=== PATIENT | female | born 1960 | race Two or more races ===

== ENCOUNTER 2024-04-18 21:18 | Emergency (ER) | payer MEDICAID, OTHER ==
[~2024-04-18] VITALS: Ht 162.6 cm; Wt 81.6 kg
[2024-04-18 21:25] VITALS: TEMP 98.1
[2024-04-18 22:13] LABS: BASOPHILS # (AUTO) 0.1 K/uL (0.0-0.2); BASOPHILS % (AUTO) 1.7 % (0.0-2.0); EOSINOPHILS # (AUTO) 0.3 K/uL (0.0-0.7); HEMATOCRIT 25 % (33-45); HEMOGLOBIN 8.2 g/dL (11.5-14.8); LYMPHOCYTES # (AUTO) 0.9 K/uL (0.8-4.8); LYMPHOCYTES % (AUTO) 21.3 % (20.0-44.0); MEAN CORPUSCULAR HEMOGLOBIN 31 PG (26.0-33.0); MEAN CORPUSCULAR HGB CONC 33 g/dl (31.0-36.0); MEAN CORPUSCULAR VOLUME 95 fL (82-100); MONOCYTES # (AUTO) 0.4 K/uL (0.1-1.30); MONOCYTES % (AUTO) 8.4 % (2.0-12.0); NEUTROPHILS # (AUTO) 2.7 K/uL (1.8-8.9); NEUTROPHILS % (AUTO) 62.6 % (43.0-81.0); PLATELET COUNT (AUTO) 200 K/uL (150-450); RED BLOOD CELL COUNT(AUTO) 2.63 MIL/uL (4.0-5.2); RED CELL DISTRIBUTION WIDTH 14.8 % (11.5-15.0); WHITE BLOOD COUNT (AUTO) 4.4 K/uL (4.3-11.0)
[2024-04-18 22:19] LABS: CALCIUM, SERUM 6.7 mg/dL (8.5-10.1); CARBON DIOXIDE 15 mmol/L (21-32); CHLORIDE 113 mmol/L (98-107); CREATININE 4.9 mg/dL (0.6-1.3); GLUCOSE 126 mg/dL (74-106); POTASSIUM 4.8 mmol/L (3.5-5.1); SODIUM SERUM 141 mmol/L (136-145); UREA NITROGEN, BLOOD 54 mg/dL (7-18)
[2024-04-18] MEDS ORDERED: hydrALAZINE HCL 50 MG TABLET ONE (22:28)
[2024-04-18] MEDS: FUROSEMIDE 40 MG/4 ML VIAL IV ONE (22:37)
[2024-04-18] MEDS: hydrALAZINE HCL 25 MG TABLET PO ONE (22:38)
[2024-04-18 23:02] LABS: ALBUMIN 2.2 g/dL (3.4-5.0); BILIRUBIN,DIRECT 0.1 mg/dL (0.0-0.2); BILIRUBIN,TOTAL 0.3 mg/dL (0.2-1.0); TOTAL PROTEIN, SERUM 6.7 g/dL (6.4-8.2)
[2024-04-18 23:08] LABS: ADD URINE CULTURE YES; APPEARANCE,URINE TURBID (CLEAR); BACTERIA,URINE Moderate /HPF (None Seen); BILIRUBIN,URINE NEGATIVE (NEGATIVE); BLOOD, URINE 2+ Ery/uL (NEGATIVE); COLOR,URINE YELLOW (YELLOW); KETONES,URINE TRACE mg/dL (NEGATIVE); LEUKOCYTE ESTERASE ,URINE 2+ (NEGATIVE); NITRITE, URINE NEGATIVE (NEGATIVE); PROTEIN,URINE 3+ mg/dl (NEGATIVE); SQUAMOUS EPITHELIAL CELL,UR Rare /HPF (None Seen); UGLUCOSE 1+ mg/dL (NEGATIVE); UROBILINOGEN,URINE 0.2 EU/dL (0.2); WBC,URINE 51-80 /HPF (0-3)
[2024-04-19] MEDS: CEFTRIAXONE 1GM BAG (ER ONLY) 1 GM/50 ML PIGGYBACK IV ONE (00:04)
[2024-04-19 02:22] VITALS: BP 174/71; O2SAT 95
== END 2024-04-19 02:23 | disposition short-term general hospital (02) ==
LOC: ER 21:18
DX: I50.9 Heart failure, unspecified (principal); Z20.822 Contact with and (suspected) exposure to COVID-19
CPT/HCPCS: 99291; 96375; 87426; 93005; 71045; 85025; 80048; 87086; 83690; 80076; 81001; 36415; 84484; 96365; J1940; J0696

== ENCOUNTER 2025-01-31 19:11 | Emergency (ER) | payer OTHER, MEDICAID ==
[~2025-01-31] VITALS: Ht 162.6 cm; Wt 90.7 kg
[2025-01-31] MEDS ORDERED: ONDANSETRON 4 MG TAB.RAPDIS ONE (20:27)
[2025-01-31 20:28] LABS: BASOPHILS % (AUTO) 1.3 % (0.0-2.0); EOSINOPHILS # (AUTO) 0.2 K/uL (0.0-0.7); EOSINOPHILS % (AUTO) 6.8 % (0.0-6.0); HEMATOCRIT 29 % (33-45); HEMOGLOBIN 9.8 g/dL (11.5-14.8); LYMPHOCYTES # (AUTO) 0.8 K/uL (0.8-4.8); LYMPHOCYTES % (AUTO) 31.8 % (20.0-44.0); MEAN CORPUSCULAR HEMOGLOBIN 32 PG (26.0-33.0); MEAN CORPUSCULAR HGB CONC 34 g/dl (31.0-36.0); MEAN CORPUSCULAR VOLUME 93 fL (82-100); MONOCYTES # (AUTO) 0.2 K/uL (0.1-1.30); MONOCYTES % (AUTO) 9.5 % (2.0-12.0); NEUTROPHILS # (AUTO) 1.3 K/uL (1.8-8.9); NEUTROPHILS % (AUTO) 50.6 % (43.0-81.0); PLATELET COUNT (AUTO) 163 K/uL (150-450); RED BLOOD CELL COUNT(AUTO) 3.11 MIL/uL (4.0-5.2); RED CELL DISTRIBUTION WIDTH 14.4 % (11.5-15.0); WHITE BLOOD COUNT (AUTO) 2.6 K/uL (4.3-11.0)
[2025-01-31] MEDS: ONDANSETRON 4 MG TAB.RAPDIS PO ONE (20:28)
[2025-01-31 20:40] LABS: CALCIUM, SERUM 7.4 mg/dL (8.5-10.1); CARBON DIOXIDE 27 mmol/L (21-32); CHLORIDE 103 mmol/L (98-107); CREATININE 6.6 mg/dL (0.6-1.3); GLUCOSE 132 mg/dL (74-106); POTASSIUM 3.3 mmol/L (3.5-5.1); SODIUM SERUM 138 mmol/L (136-145); UREA NITROGEN, BLOOD 32 mg/dL (7-18)
[2025-01-31 20:42] LABS: MAGNESIUM 2.3 mg/dL (1.8-2.4); PHOSPHORUS 5.1 mg/dL (2.5-4.9)
[2025-01-31 20:53] LABS: ALANINE AMINOTRANSFERASE 126 U/L (12-78); ALBUMIN 2.6 g/dL (3.4-5.0); ALKALINE PHOSPHATASE 148 U/L (46-116); ASPARTATE AMINOTRANSFERASE 142 U/L (15-37); BILIRUBIN,DIRECT 0.1 mg/dL (0.0-0.2); BILIRUBIN,TOTAL 0.3 mg/dL (0.2-1.0); NT-PRO BNP > 25000 pg/mL (0-125); TOTAL PROTEIN, SERUM 6.7 g/dL (6.4-8.2)
[2025-01-31] MEDS ORDERED: ONDA4TAB5 PO (22:11)
[2025-01-31] MEDS ORDERED: FUROSEMIDE 40 MG/4 ML VIAL ONE (22:18)
[2025-01-31] MEDS: FUROSEMIDE 40 MG/4 ML VIAL IV ONE (22:19)
[2025-01-31 22:25] VITALS: BP 144/77; TEMP 97.8; O2SAT 98
== END 2025-02-01 00:18 | disposition home or self-care (01) ==
LOC: ER 19:18
DX: A08.4 Viral intestinal infection, unspecified (principal); R06.02 Shortness of breath; I13.2 Hypertensive heart and chronic kidney disease with heart failure and with stage 5 chronic kidney disease, or end stage renal disease; E11.22 Type 2 diabetes mellitus with diabetic chronic kidney disease; N18.6 End stage renal disease; I25.2 Old myocardial infarction; I50.9 Heart failure, unspecified; Z79.4 Long term (current) use of insulin; Z99.2 Dependence on renal dialysis
CPT/HCPCS: 99285; 96374; 93005; 87804 ×2; 71045; 84145; 85025; 80048; 83690; 80076; 83735; 84100; 36415; 84484; 83880; J1938; Q0162

== ENCOUNTER 2025-05-15 16:30 | Emergency (ER) | payer OTHER, MEDICAID ==
[~2025-05-15] VITALS: Ht 162.6 cm; Wt 99.8 kg
[~2025-05-15 16:30] MED LIST: ONDA4TAB5 PO
[2025-05-15] MEDS ORDERED: NIFEdipine (10MG) 10 MG CAPSULE PO ONE (17:38)
[2025-05-15] MEDS: NIFEdipine XL (30MG) 30 MG TAB PO SCH (17:52)
[2025-05-15 17:59] LABS: PLATELET COUNT (AUTO) 236 K/uL (150-450); RED BLOOD CELL COUNT(AUTO) 3.09 MIL/uL (4.0-5.2); RED CELL DISTRIBUTION WIDTH 15.3 % (11.5-15.0); WHITE BLOOD COUNT (AUTO) 3.8 K/uL (4.3-11.0)
[2025-05-15 18:05] LABS: CALCIUM, SERUM 7.9 mg/dL (8.5-10.1); CREATININE 5.6 mg/dL (0.6-1.3); SODIUM SERUM 138.0 mmol/L (136-145); UREA NITROGEN, BLOOD 26.0 mg/dL (7-18)
[2025-05-15 20:45] VITALS: BP 148/54; TEMP 98.5; O2SAT 96
[2025-05-16] MEDS ORDERED: NIFEdipine XL (30MG) 30 MG TAB PO SCH (09:00)
== END 2025-05-15 20:45 ==
LOC: ER 16:33
DX: T82.49XA Other complication of vascular dialysis catheter, initial encounter (principal); I13.2 Hypertensive heart and chronic kidney disease with heart failure and with stage 5 chronic kidney disease, or end stage renal disease; E11.22 Type 2 diabetes mellitus with diabetic chronic kidney disease; I50.9 Heart failure, unspecified; I25.2 Old myocardial infarction; N18.6 End stage renal disease; Z79.4 Long term (current) use of insulin; Z88.6 Allergy status to analgesic agent; Z99.2 Dependence on renal dialysis; Z79.899 Other long term (current) drug therapy; Y92.89 Other specified places as the place of occurrence of the external cause
CPT/HCPCS: 36415; 71045-TC; 80048-TC; 85025-TC

== ENCOUNTER 2025-06-17 18:57 | Emergency (ER) | payer OTHER, MEDICAID ==
[~2025-06-17] VITALS: Ht 157.5 cm; Wt 90.7 kg
[2025-06-17 19:13] VITALS: TEMP 98.9
[2025-06-17] MEDS ORDERED: ONDANSETRON HCL/PF 4 MG/2 ML VIAL ONE (19:29)
[2025-06-17 19:32] LABS: PLATELET COUNT (AUTO) 175 K/uL (150-450); RED BLOOD CELL COUNT(AUTO) 3.00 MIL/uL (4.0-5.2); RED CELL DISTRIBUTION WIDTH 14.8 % (11.5-15.0); WHITE BLOOD COUNT (AUTO) 7.3 K/uL (4.3-11.0)
[2025-06-17] MEDS: ONDANSETRON HCL/PF 4 MG/2 ML VIAL IV ONE (19:43)
[2025-06-17 19:57] LABS: ASPARTATE AMINOTRANSFERASE 9 U/L (15-37); CALCIUM, SERUM 7.6 mg/dL (8.5-10.1); NT-PRO BNP > 25000 pg/mL (0-125); SODIUM SERUM 142 mmol/L (136-145); TOTAL PROTEIN, SERUM 7.1 g/dL (6.4-8.2); UREA NITROGEN, BLOOD 56 mg/dL (7-18)
[2025-06-17 19:59] LABS: CREATININE 9.7 mg/dL (0.6-1.3)
[2025-06-17] MEDS: ALBUTEROL FS 2.5 MG/3 ML VIAL.NEB NEB ONE (21:58)
[2025-06-17 22:00] VITALS: O2SAT 95
[2025-06-17] MEDS: GUAIFENESIN/D-METHORPHAN HB 5 ML UDC PO ONE (22:00)
[2025-06-17] MEDS: SODIUM BICARBONATE SYR 50 MEQ/50 ML DISP.SYRIN IV ONE (22:00)
[2025-06-17] MEDS: CALCIUM CHLORIDE 1,000 MG/10 ML DISP.SYRIN IV ONE (22:00)
[2025-06-17] MEDS: SODIUM ZIRCONIUM CYCLOSILICATE 10 GM POWD.PACK PO ONE (22:00)
[2025-06-17] MEDS ORDERED: ALBUTEROL FS 2.5 MG/3 ML VIAL.NEB ONE ×2 (22:02→22:03)
[2025-06-17 22:13] VITALS: BP 118/104
[2025-06-17 22:15] VITALS: O2SAT 100
[2025-06-17 22:20] VITALS: O2SAT 100
[2025-06-17 22:35] VITALS: O2SAT 100
[2025-06-17] MEDS ORDERED: GUAIFENESIN/D-METHORPHAN HB 5 ML UDC ONE (23:26)
[2025-06-17] MEDS ORDERED: SODIUM BICARBONATE SYR 50 MEQ/50 ML DISP.SYRIN ONE (23:27)
[2025-06-17] MEDS ORDERED: SODIUM ZIRCONIUM CYCLOSILICATE 10 GM POWD.PACK ONE (23:27)
[2025-06-17] MEDS ORDERED: CALCIUM CHLORIDE 1,000 MG/10 ML DISP.SYRIN ONE (23:27)
[2025-06-19] MEDS ORDERED: GABA300C PO (08:21)
[2025-06-19] MEDS ORDERED: METO25TA20 PO (08:21)
[2025-06-19] MEDS ORDERED: ERGO500093 PO (08:21)
[2025-06-19] MEDS ORDERED: ONDA8TAB65 PO (08:21)
[2025-06-19] MEDS ORDERED: NPH,100V SQ ×2 (08:21)
[2025-06-19] MEDS ORDERED: ASPI-1169 PO (08:21)
[2025-06-19] MEDS ORDERED: HYDR-4077 PO (08:21)
[2025-06-19] MEDS ORDERED: DORZ1DRO7 LEFTEYE (08:21)
[2025-06-19] MEDS ORDERED: CALC0.253 PO (08:21)
[2025-06-19] MEDS ORDERED: TORS20TA3 PO (08:21)
[2025-06-19] MEDS ORDERED: ROSU10TA29 PO (08:21)
[2025-06-19] MEDS ORDERED: BRIM5DRO11 LEFTEYE (08:21)
[2025-06-19] MEDS ORDERED: AMLO-213 PO (08:21)
[2025-06-19] MEDS ORDERED: LATA7.5D LEFTEYE (08:21)
[2025-06-19] MEDS ORDERED: ALBU2.5V13 NEB (11:02)
== END 2025-06-18 01:51 | disposition short-term general hospital (02) ==
LOC: ER 18:59
DX: E87.5 Hyperkalemia (principal); R06.02 Shortness of breath; R05.9 Cough, unspecified; R07.9 Chest pain, unspecified; R11.0 Nausea; I13.2 Hypertensive heart and chronic kidney disease with heart failure and with stage 5 chronic kidney disease, or end stage renal disease; E11.22 Type 2 diabetes mellitus with diabetic chronic kidney disease; I45.10 Unspecified right bundle-branch block; I50.9 Heart failure, unspecified; N18.6 End stage renal disease; Z88.6 Allergy status to analgesic agent; Z99.2 Dependence on renal dialysis; Z20.822 Contact with and (suspected) exposure to COVID-19
CPT/HCPCS: 99285; 96374; 96375; 71045; 87426; 93005; 87804 ×2; 85025; 80048; 83690; 80076; 36415; 84484 ×2; 83880; 94640; J3490 ×2; J2405

== ENCOUNTER 2025-06-18 19:39 | Inpatient (IN) | payer OTHER, MEDICAID ==
[~2025-06-18] VITALS: Ht 157.5 cm; Wt 98.9 kg
[2025-06-18 20:19] LABS: PLATELET COUNT (AUTO) 125 K/uL (150-450); RED BLOOD CELL COUNT(AUTO) 2.75 MIL/uL (4.0-5.2); RED CELL DISTRIBUTION WIDTH 14.6 % (11.5-15.0); WHITE BLOOD COUNT (AUTO) 6.8 K/uL (4.3-11.0)
[2025-06-18 20:43] LABS: CALCIUM, SERUM 8.1 mg/dL (8.5-10.1); CREATININE 6.2 mg/dL (0.6-1.3); SODIUM SERUM 139 mmol/L (136-145); UREA NITROGEN, BLOOD 33 mg/dL (7-18)
[2025-06-18 20:50] LABS: ASPARTATE AMINOTRANSFERASE 15 U/L (15-37); NT-PRO BNP > 25000 pg/mL (0-125); TOTAL PROTEIN, SERUM 6.8 g/dL (6.4-8.2)
[2025-06-18] MEDS: ALBUTEROL FS 2.5 MG/0.5 ML VIAL.NEB NEB ONE (20:52)
[2025-06-18] MEDS: IPRATROPIUM NEB FS 0.5 MG/2.5 ML AMPUL.NEB NEB ONE (20:52)
[2025-06-18] MEDS ORDERED: ALBUTEROL FS 2.5 MG/0.5 ML VIAL.NEB ONE (20:54)
[2025-06-18] MEDS ORDERED: IPRATROPIUM NEB FS 0.5 MG/2.5 ML AMPUL.NEB ONE (20:54)
[2025-06-18 20:59] VITALS: O2SAT 100
[2025-06-18 21:04] LABS: ABG BASE EXCESS 1.7 mmol/L (-2.0-3.0); ABG OXYGEN SATURATION 98.1 % (94.0-98.0); ABG PCO2 35.2 mmHg (32.0-45.0); ABG PH 7.472 (7.350-7.450); ABG PO2 119.2 mmHg (83.0-108.0); ABG TOTAL HEMOGLOBIN 11.0 G/dL (12.0-16.0); FLOW, BLOOD GAS 4.00 L/min (0.00-30.00); FRACTIONATED INSPIRED OXYGEN 36.0 %; SITE, ABG RIGHT RADIAL
[2025-06-18 21:09] VITALS: O2SAT 100
[2025-06-18 21:16] VITALS: O2SAT 100
[2025-06-18 21:26] VITALS: O2SAT 100
[2025-06-18] MEDS ORDERED: IOHEXOL-350 100 ML VIAL IV ONE (22:21)
[2025-06-18] MEDS ORDERED: IV NS 0.9% 250 ML IV ONE (22:21)
[2025-06-18] MEDS: ONDANSETRON HCL/PF 4 MG/2 ML VIAL IM ONE (22:35)
[2025-06-18] MEDS ORDERED: MIDAZOLAM HCL 2 MG/2ML VIAL ONE (22:38)
[2025-06-18] MEDS: MIDAZOLAM HCL 2 MG/2ML VIAL IV ONE ×2 (22:42→23:11)
[2025-06-19] MEDS ORDERED: Z GUARD REMEDY 4 OZ OINT TP PRN (00:30)
[2025-06-19] MEDS ORDERED: ALBUTEROL FS 2.5 MG/0.5 ML VIAL.NEB NEB PRN ×2 (00:30→11:30)
[2025-06-19] MEDS ORDERED: ACETAMINOPHEN 325 MG TABLET PO PRN (00:30)
[2025-06-19] MEDS ORDERED: ONDANSETRON HCL/PF 4 MG/2 ML VIAL IVP PRN (00:30)
[2025-06-19] MEDS: ENOXAPARIN SODIUM 100 MG/ML DISP.SYRIN SQ ONE (01:30)
[2025-06-19] MEDS: ENOXAPARIN SODIUM 30 MG/0.3 ML DISP.SYRIN SQ SCH (02:31)
[2025-06-19 04:00] VITALS: BP 147/58; TEMP 98.2; O2SAT 97
[2025-06-19 06:49] LABS: PHOSPHORUS 6.2 mg/dL (2.5-4.9)
[2025-06-19 07:14] LABS: PLATELET COUNT (AUTO) 119 K/uL (150-450); RED BLOOD CELL COUNT(AUTO) 2.59 MIL/uL (4.0-5.2); RED CELL DISTRIBUTION WIDTH 14.9 % (11.5-15.0); WHITE BLOOD COUNT (AUTO) 5.1 K/uL (4.3-11.0)
[2025-06-19 08:00] VITALS: BP 155/53; TEMP 98.4; O2SAT 98
[2025-06-19] MEDS: PANTOPRAZOLE 40 MG TABLET.DR PO SCH (08:16)
[2025-06-19] MEDS ORDERED: GABA300C PO (08:21)
[2025-06-19] MEDS ORDERED: TORS20TA3 PO (08:21)
[2025-06-19] MEDS ORDERED: ROSU10TA29 PO (08:21)
[2025-06-19] MEDS ORDERED: ASPI-1169 PO (08:21)
[2025-06-19] MEDS ORDERED: NPH,100V SQ ×2 (08:21)
[2025-06-19] MEDS ORDERED: HYDR-4077 PO (08:21)
[2025-06-19] MEDS ORDERED: CALC0.253 PO (08:21)
[2025-06-19] MEDS ORDERED: AMLO-213 PO (08:21)
[2025-06-19] MEDS ORDERED: ERGO500093 PO (08:21)
[2025-06-19] MEDS ORDERED: METO25TA20 PO (08:21)
[2025-06-19] MEDS ORDERED: BRIM5DRO11 LEFTEYE (08:21)
[2025-06-19] MEDS ORDERED: ONDA8TAB65 PO (08:21)
[2025-06-19] MEDS ORDERED: DORZ1DRO7 LEFTEYE (08:21)
[2025-06-19] MEDS ORDERED: LATA7.5D LEFTEYE (08:21)
[2025-06-19] MEDS ORDERED: HEPARIN SODIUM, PORCINE 5000 UNITS/1 ML VIAL SQ SCH (09:00)
[2025-06-19] MEDS ORDERED: ALBU2.5V13 NEB (11:02)
[2025-06-19] MEDS ORDERED: GABAPENTIN 300 MG CAPSULE PO PRN (11:30)
[2025-06-19] MEDS ORDERED: ONDANSETRON HCL 8 MG PO PRN (11:30)
[2025-06-19 12:08] LABS: CALCIUM, SERUM 7.7 mg/dL (8.5-10.1); CREATININE 6.6 mg/dL (0.6-1.3); SODIUM SERUM 137 mmol/L (136-145); UREA NITROGEN, BLOOD 39 mg/dL (7-18)
[2025-06-19 12:35] LABS: NT-PRO BNP > 25000 pg/mL (0-125)
[2025-06-19] MEDS: TIMOLOL MAL/DORZOLAM HCL OPHTH 10 ML BOTTLE LEFTEYE SCH (12:59)
[2025-06-19] MEDS: BRIMONIDINE TARTRATE OPHT SOLN 5 ML BOTTLE LEFTEYE SCH (12:59)
[2025-06-19] MEDS: LATANOPROST EYE DROP 0.005% 2.5 ML BOTTLE LEFTEYE SCH (12:59)
[2025-06-19] MEDS: LIDOCAINE 5% (PATCH) 1 EA PATCH TP SCH (14:41)
[2025-06-19 15:18] VITALS: BP 114/78; TEMP 98.4; O2SAT 98
[2025-06-19 16:27] VITALS: BP 137/55
[2025-06-19] MEDS: METOPROLOL TARTRATE 25 MG TABLET PO SCH (16:27)
[2025-06-19] MEDS ORDERED: INSULIN GLARGINE, 100 UNIT/ML CARTRIDGE SQ SCH (18:00)
[2025-06-19] MEDS ORDERED: ENOXAPARIN SODIUM 100 MG/ML DISP.SYRIN SQ SCH (21:00)
[2025-06-20] MEDS ORDERED: ASPIRIN 81 MG TAB.CHEW PO SCH (09:00)
[2025-06-20] MEDS ORDERED: AMLODIPINE BESYLATE 10 MG TABLET PO SCH (09:00)
[2025-06-20] MEDS ORDERED: INSULIN GLARGINE, 100 UNIT/ML CARTRIDGE SQ SCH (09:00)
[2025-06-20] MEDS ORDERED: ATORVASTATIN 40 MG TABLET PO SCH (09:00)
[2025-06-20] MEDS ORDERED: FUROSEMIDE 20 MG TABLET PO SCH (09:00)
[2025-06-20] MEDS ORDERED: CALCITRIOL 0.25 MCG CAPSULE PO SCH (09:00)
== END 2025-06-19 17:00 | disposition short-term general hospital (02) | DRG 280 ==
LOC: ER 19:40 → TELE 06-19 00:55
PROVIDERS: ADMIT Student in an Organized Health Care Education/Training Program; ATTEND Student in an Organized Health Care Education/Training Program
DX: I13.2 Hypertensive heart and chronic kidney disease with heart failure and with stage 5 chronic kidney disease, or end stage renal disease (principal); I50.23 Acute on chronic systolic (congestive) heart failure; I21.A1 Myocardial infarction type 2; N18.6 End stage renal disease; E44.0 Moderate protein-calorie malnutrition; Z99.2 Dependence on renal dialysis; E11.22 Type 2 diabetes mellitus with diabetic chronic kidney disease; I25.10 Atherosclerotic heart disease of native coronary artery without angina pectoris; D64.9 Anemia, unspecified; D69.6 Thrombocytopenia, unspecified; I25.2 Old myocardial infarction; Z88.6 Allergy status to analgesic agent; Z20.822 Contact with and (suspected) exposure to COVID-19; Z68.39 Body mass index [BMI] 39.0-39.9, adult
CPT/HCPCS: 36415; 36600; 71045-TC; 80048-TC; 80076-TC; 82803-TC; 83735-TC; 83880; 84100-TC; 84484-TC; 85025-TC; 85378-TC; 87081-TC; 93307-TC; 94799-TC; G0378; J1650; J1815; J2250; J7050; J7120; Q9967